=== PATIENT | male | born 1975 | race Caucasian/White ===

== ENCOUNTER 2024-07-13 12:42 | Emergency (ER) | payer BC, SELFPAY ==
[2024-07-13 12:49] VITALS: BP 137/104
--- NOTE | 2024-07-13 13:18 | ED.GENMED ---
History of Present Illness
<Sirena Scott PA-C - Last Filed: 07/13/24 18:44>
General
Chief Complaint: Musculo-Skeletal Complaint
Source: patient
Exam Limitations: none
Time Seen by Provider: 07/13/24 13:15
Nursing documentation reviewed up to this point in time: agreed with
History of Present Illness
History of Present Illness:
Patient is a 48-year-old male presenting with left hand injury. Patient states that on Thursday afternoon he was in [facility] and slipped near the jetty landing awkwardly on his left hand. He states that he initially noticed some
bruising and swelling of his left hand in between the second and third digits. Yesterday he states his entire hand seem to be swollen with some level of bruising. He now notes pain closer to the wrist on the ulnar aspect. Patient denies any
numbness or tingling of left hand. Patient has been taking Aleve at home with some improvement. Patient denies any other associated injuries. He did not hit his head or lose consciousness.
Review of Systems
<Sirena Scott PA-C - Last Filed: 07/13/24 18:44>
Review of Systems
Allergies reviewed?: Yes
All Other Systems: ROS reviewed and negative except as documented in HPI and ROS
Phy Exam
<Sirena Scott PA-C - Last Filed: 07/13/24 18:44>
Physical Exam
Physical Exam:
Vitals: Hypertensive, otherwise vital signs stable
General: Patient is well appearing, no acute distress
Skin: Warm and dry, no rashes or lesions. No lacerations
Head: Normocephalic, atraumatic
Eyes: Sclera nonicteric. EOMs intact. No nystagmus.
Throat: Protecting airway
Neck: Normal ROM, no cervical spine tenderness, no meningismus
Cardiac: Regular rate and rhythm, no murmurs.
Pulm: Normal respiratory effort, no wheezes, rales, rhonchi heard on exam.
Abdomen: No abdominal tenderness.
Extremities: Ecchymoses and diffuse edema of left hand with localized area of tenderness of the left wrist near distal ulna and at base of second and third metacarpals. Patient has somewhat decreased ability to flex/extend at left wrist. No pain
or limitations in range of motion of left elbow. Great capillary refill left upper extremity with sensation intact. Great distal pulses of LUE
Neuro: AAOx3. CN II-XII intact. No focal neurologic deficits.
Psychiatric: Normal affect.
Course
<Sirena Scott PA-C - Last Filed: 07/13/24 18:44>
Orders/Labs/Results
Orders:
Orders
07/13/24 12:49
Hand, Left 3 View [CR Hand - Left Min 3 Views] Urgent
Comment:
Reason For Exam: fall, swelling
07/13/24 13:39
Wrist, Left 3 Views CR [CR Wrist - Left Min 3 Views] Urgent
Comment:
Reason For Exam: pain left wrist s/p fall
07/13/24 13:56
Splints/Slings/Crut- Treatment ONCE
Location: Left
Type of Splint: [place] Wrist
Vital Signs
Initial and Last Documented VS:
Initial Vital Signs
Temp Pulse Resp BP Pulse Ox
97.8 F 81 17 137/104 97
07/13/24 12:49 07/13/24 12:49 07/13/24 12:49 07/13/24 12:49 07/13/24 12:49
Last Documented Vital Signs
Temp Pulse Resp BP Pulse Ox
97.8 F 75 17 145/85 97
07/13/24 12:49 07/13/24 14:39 07/13/24 12:49 07/13/24 14:39 07/13/24 12:49
<Darrick Kan DO - Last Filed: 07/13/24 20:23>
Orders/Labs/Results
Orders:
Orders
07/13/24 12:49
Hand, Left 3 View [CR Hand - Left Min 3 Views] Urgent
Comment:
Reason For Exam: fall, swelling
07/13/24 13:39
Wrist, Left 3 Views CR [CR Wrist - Left Min 3 Views] Urgent
Comment:
Reason For Exam: pain left wrist s/p fall
07/13/24 13:56
Splints/Slings/Crut- Treatment ONCE
Location: Left
Type of Splint: [place] Wrist
Vital Signs
Initial and Last Documented VS:
Initial Vital Signs
Temp Pulse Resp BP Pulse Ox
97.8 F 81 17 137/104 97
07/13/24 12:49 07/13/24 12:49 07/13/24 12:49 07/13/24 12:49 07/13/24 12:49
Last Documented Vital Signs
Temp Pulse Resp BP Pulse Ox
97.8 F 75 17 145/85 97
07/13/24 12:49 07/13/24 14:39 07/13/24 12:49 07/13/24 14:39 07/13/24 12:49
<Sirena Scott PA-C - Last Filed: 07/13/24 18:44>
MDM/Problems Addressed
Differential Diagnosis Includes:
Not limited to: Hand fracture, wrist fracture, sprain, dislocation, contusion
MDM/Problems Addressed:
48-year-old male presenting with left hand injury sustained 2 days ago after mechanical slip and fall. No other associated injuries. No head strike. Patient with diffuse edema, ecchymoses of left hand with tenderness near distal ulna. Some
tenderness noted near base of second and third digits. Some diminished ability to flex/extend at left wrist. Left hand is neurovascular intact. Great distal pulse in left upper extremity. Patient has full range of motion in left elbow. No other
associated injuries. X-rays were obtained of both left hand and left wrist. Radiology read reviewed. No acute fracture noted although there is an area near the distal left ulna which was noted to be either 'hypertrophic degenerative changes vs
sequela of old healed fracture '. This is the location of patient's discomfort and there is some clinical concern for acute fracture versus soft tissue injury versus sprain. Will place patient in universal volar wrist splint and refer to
orthopedics for further management/further imaging. Recommend ice, elevation, NSAIDs as needed for pain. Patient comfortable with plan. All questions answered. He will follow-up with orthopedics. Stable for discharge. Patient seen by attending
physician.
Chronic conditions affecting care:
N/A
Acute Exacerbation and/or Progression of Chronic Illness:
N/A
<Sirena Scott PA-C - Last Filed: 07/13/24 18:44>
*Radiology
Radiology exam reviewed: preliminary read by ED provider (Possible) and radiology read reviewed
*Pulse Oximetry
Patient hypoxic: no
*EKG
Interpreted by ED Provider?: NA
*Splicer Apprentice Interpretation
Rate: Splicer Apprentice- N/A
*Critical Care Note
Total Time (30-74mins, 75-104mins- exclusive of procedures): Not Applicable
ED Attending Note
<Sirena Scott PA-C - Last Filed: 07/13/24 18:44>
-
Portions of this chart may have been created with voice recognition software.� Occasional wrong word or��sound alike� substitutions may have occurred due to the inherent limitations of voice recognition software.
<Darrick Kan DO - Last Filed: 07/13/24 20:23>
ED Attending Note
Patient seen and examined by attending physician: Yes
I performed the substantive portion of visit, reviewed & personally made and approve the management plan that is documented in note by myself or JACINTA.: Yes
ED Attending Note:
Patient is a [id number] 48-year-old male who presents with left wrist and hand pain after falling forward onto dorsiflexed left hand 2 days ago while [place]. Patient noticed some bruising immediately around the dorsum of the left
index and middle finger metacarpals. Since then patient's had increasing swelling. Patient denies any numbness or paresthesias. The pain is more in the ulnar aspect of the wrist than in the hand at this time. Patient is tender in the ulnar
aspect of the carpals and distal ulna. Range of motion is with pain but full. Patient has diffuse swelling. Neurovascularly tendons intact. Review of the x-ray shows a questionable fracture of degenerative bone growth and ulna. Patient will be
splinted and referred to orthopedics.
Discharge Plan
Departure
Patient Disposition: Home (Routine Discharge)
Date of Disposition: 07/13/24
Time of Disposition: 14:03
Patient with high blood pressure during this ER visit?: Yes
Discharge Problem:
Injury of hand, left
Referrals:
Luther Cuadra, DO [Active] - Next open appointment
Activity Restrictions/Additional Instructions:
RETURN TO THE EMERGENCY DEPARTMENT WITH ANY INTRACTABLE PAIN, NUMBNESS/TINGLING IN LEFT HAND, WORSENING IN CURRENT SYMPTOMS, OR ANY OTHER CONCERNS
-As discussed�you should keep your left wrist in the splint to limit range of motion. It is important to keep left arm elevated and apply ice. You can take Tylenol and/or Motrin as needed for discomfort.
-Follow-up with orthopedics for further evaluation/management. You may require further imaging.
Interventions
Interventions:
*Risk Screen - Suicide Last Done: 07/13/24 13:20
*General Assessment Last Done: 07/13/24 13:20
*Neglect/Abuse Screening Last Done: 07/13/24 13:20
*Nursing Disposition Last Done: 07/13/24 14:39
ED-Musculoskeletal Assessment Last Done: 07/13/24 13:16
Discharge Date and Time
Discharge Date/Time: 07/13/24 14:41
Print Language: RWANDAN
[2024-07-13 14:39] VITALS: BP 145/85
== END 2024-07-13 14:41 | disposition home or self-care (01) ==
LOC: EMR 12:42
PROVIDERS: EMERGENCY PHYSICIAN Emergency Medicine
DX: S69.92XA Unspecified injury of left wrist, hand and finger(s), initial encounter (principal); S60.222A Contusion of left hand, initial encounter; M79.89 Other specified soft tissue disorders; W01.0XXA Fall on same level from slipping, tripping and stumbling without subsequent striking against object, initial encounter; R03.0 Elevated blood-pressure reading, without diagnosis of hypertension
CPT/HCPCS: 99283; 29125; 73110; 73130